=== PATIENT | male | born 1960 | race Caucasian/White ===

== ENCOUNTER 2016-08-20 10:50 | Day surgery (SDC) | payer BC ==
--- NOTE | 2016-08-11 12:07 | HP ---
PREOPERATIVE HISTORY AND PHYSICAL: DATE OF ADMISSION: 08/20/16 This patient is scheduled for Same-Day Surgery admission by Dr. Reynoso on 08/20/16. DATE OF EXAM: 08/08/16 ATTENDING SURGEON: Dr. Terry Reynoso (dictated by Kiara Rdz NP). CHIEF COMPLAINT: Belly button hernia. HISTORY OF PRESENT ILLNESS: The patient is a 55-year-old male referred to Dr. Reynoso from Dr. Abigail Morel for evaluation of umbilical hernia. The patient describes the onset of a belly button bulge in May 2016. It has gotten gradually larger but is not associated with any pain or nausea or vomiting but he has noticed more constipation. He denies any heavy lifting at that time or other trauma to the umbilical region. Dr. Reynoso examined the patient and notes a 1 cm umbilical bulge which is reducible; Dr. Reynoso discussed the nature of umbilical hernias and has recommended open umbilical hernia repair with mesh. Dr. Reynoso discussed the relevant risks and benefits and today I reviewed the typical Same-Day Surgery and postoperative care and recovery. The patient has had a chance to ask questions and stated that he understands the information and is satisfied with the answers given to his questions. He will sign surgical consent on the day of surgery. PAST MEDICAL HISTORY: Gastroesophageal reflux and hiatal hernia; pectus excavatum. PAST SURGICAL HISTORY: Left groin hernia repair with mesh in 2007 and urethral dilatation. MEDICATIONS: 1. Duloxetine 30 mg p.o. daily in the morning. 2. Lansoprazole 30 mg p.o. daily in the morning. 3. Zyrtec 10 mg p.o. daily in the morning. 4. Sudafed 60 mg p.o. t.i.d. 5. Ibuprofen 800 mg p.o. b.i.d. 6. Fluticasone 2 sprays each nostril daily p.r.n. 7. Azelastine 0.05% instill one drop into both eyes daily as needed. ALLERGIES: LEVAQUIN and CIPRO and TRAZODONE all caused rash, AMBIEN caused diaphoresis. FAMILY HISTORY: No known anesthesia complications, bleeding tendencies or clotting disorders. SOCIAL HISTORY: He is a nonsmoker. He drinks one glass of red wine per week. He is self-employed. REVIEW OF SYSTEMS: He denies any recent constitutional symptoms. He denies any cardiac conditions or complaints. He denies any current respiratory conditions or complaints. He has a history of GERD and hiatal hernia, controlled with current lansoprazole; he has occasional constipation but denies any signs or symptoms to suggest incarceration or strangulation of the umbilical hernia. He denies any nausea or vomiting; he denies any previous anesthesia complications. He denies any history of deep vein thrombosis or pulmonary embolism. He denies any bleeding tendencies and has never received a blood transfusion. He has had urethral dilatation on one occasion. He denies any current dysuria. PHYSICAL EXAMINATION GENERAL SURVEY: The patient is a 55-year-old male, well developed, well nourished, in no acute distress. VITAL SIGNS: Height 68.5 inches, weight 184 pounds, body mass index 27.6, blood pressure 126/82, pulse 84 and regular, respiratory rate 18. HEENT: Benign. NECK: Supple. No cervical lymphadenopathy. No carotid bruits. BACK: No CVA tenderness. LUNGS: Breath sounds bilaterally clear and equal. HEART: Regular rate and rhythm. No murmurs or rubs appreciated. ABDOMEN: Active bowel sounds. Soft and nondistended. Mild rectus diastasis extended to pectus excavatum. Umbilicus reveals a 1 cm bulge which is reducible in the supine position. No obvious masses or organomegaly. Inguinal exam is done by Dr. Reynoso. Left inguinal area reveals no hernia; small right inguinal hernia noted with Valsalva maneuver. Testicles descended. No masses. EXTREMITIES: Warm without edema or skin ulceration. RECTAL: Deferred. NEUROLOGIC: Alert and oriented x3. Steady gait. SKIN: Warm, dry, intact. IMPRESSION: Umbilical hernia. PLAN: Same-Day Surgery admission to Dr. Reynoso's service on 08/20/16 for open repair of umbilical hernia with mesh. DANIEL RDZ NP CC: Dr. Reynoso at [facility]; Dr. Abigail Morel* [id number]/[facility] #: [id number] [facility] HOSPITALReynaldo
[~2016-08-20 10:50] MED LIST: Buffered Lidocaine 1% SYR 3ML* 3 ML/SYR SYRINGE INTRADERM ONE; Famotidine IV* 10 MG/ML 2 ML (20 mg) IV ONE; Famotidine IV* 10 MG/ML 2 ML (20 mg) ONE; ceFAZolin 2 GM PREMIX (*) 2 GM/50 ML BAG IVPB ONE
[2016-08-20] MEDS ORDERED: fentaNYL* 50 MCG/ML 2 ML VIAL (100 MCG VIAL) ONE (11:34)
[2016-08-20] MEDS ORDERED: Lidocaine 2% PF * 5 ML VIAL ONE (11:34)
[2016-08-20] MEDS ORDERED: Ketorolac INJ* 30 MG/ML 1 ML VIAL ONE (11:34)
[2016-08-20] MEDS ORDERED: Ondansetron INJ* 2 MG/ML VIAL ONE (11:34)
[2016-08-20] MEDS ORDERED: Midazolam* 1 MG/ML 5 ML VIAL (5 MG) ONE (11:34)
[2016-08-20] MEDS ORDERED: KETAMINE HCL* 50 MG/ML 10 ML VIAL ONE (11:34)
[2016-08-20] MEDS ORDERED: Propofol* 10 MG/ML 20 ML BTL IV PUSH ONE (11:34)
[2016-08-20] MEDS ORDERED: Dexamethasone IV* 4 MG/ML 1 ML (4 MG) ONE (11:34)
[2016-08-20] MEDS ORDERED: Lidocaine 1% INJ* 10 MG/ML 30 ML SDV ONE (11:59)
[2016-08-20] MEDS ORDERED: Bupivacaine 0.5% W/EPI SDV* 30 ML VIAL ONE (11:59)
[2016-08-20] MEDS ORDERED: Acetaminophen TAB* 325 MG PO PRN (12:42)
[2016-08-20] MEDS ORDERED: oxyCODONE/Acetamin 5/325 MG* TAB PO PRN (12:42)
[2016-08-20] MEDS ORDERED: HYDROmorphone INJ* 1 MG/ML CARPUJECT SYRINGE IV PRN (12:42)
[2016-08-20] MEDS ORDERED: DiMENhydriNATE IV* 50 MG/ML VIAL IV PUSH PRN (12:42)
[2016-08-20] MEDS ORDERED: Bacitracin OINTMENT* 0.5% 0.5 oz TUBE ONE (12:56)
--- NOTE | 2016-08-20 13:02 | SURGPN ---
Brief Operative Note - Surgery Procedures: Pre-OP Diagnoses: umbilical hernia Post-op Diagnosis: same Procedure: open umbilical hernia repair with mesh Surgeon: Edgardo Asst: Carmen Anethesia: Local AYANNA Sharpe EBL: minimal IVF: 800cc LR Specimen: none Drains: none
[2016-08-20 13:55] VITALS: BP 133/78
--- NOTE | 2016-08-21 03:52 | OP ---
DATE OF OPERATION: 08/20/16 - [facility] DATE OF : 64 SURGEON: Terry Reynoso MD REGULATION SUPERVISOR: CHAPITO Will ANESTHESIOLOGIST: Dr. Sharpe. ANESTHESIA: Local MAC. PRE-OP DIAGNOSIS: Umbilical hernia. POST-OP DIAGNOSIS: Umbilical hernia. OPERATIVE PROCEDURE: Open umbilical hernia repair with mesh. ESTIMATED BLOOD LOSS: Minimal blood loss. IV FLUIDS: 800 cc of crystalloid fluid given. SPECIMEN: None. COUNT: Lap pad count, instrument count correct at the end of procedure. DESCRIPTION OF PROCEDURE: The patient was identified in the preoperative area. Consent signed. Case discussed with him and his again. They understood the risks, benefits, and alternatives, and wished to proceed. We marked him and he was brought to the operating room, placed in the operating table in supine position, gentle sedation was given. Sequential devices were placed on bilateral lower extremities. Preoperative antibiotics were given. The patient' s abdomen was clipped of hair and then prepped and draped in the standard surgical fashion and a time-out was performed. An infraumbilical incision was made. This was deepened down to the anterior fascia inferiorly. The umbilical stalk was then isolated around a Fowler drain and a sharp dissection was utilized to remove the umbilical skin from the hernia defect. The edges of the hernia defect were cleared off and it was approximately 1.5 cm in size. A 4.3-cm Ventralex mesh Bard was opened up and placed into the defect. The tails of the mesh were brought out through the defect. We sutured the inferior aspect, superior aspect as well as laterally with 0 Polysorb sutures, taking care to pick remover the mesh, it lay open, intact, underneath the anterior fascia in a preperitoneal plane ___ ___ entered the abdomen. The defect was then reapproximated with a figure-of-8 0 Polysorb suture. The wound was then irrigated. Umbilical skin was tacked down with a 2-0 Polysorb suture and the defect was closed with 3-0 Polysorb suture, followed by a 4-0 Monocryl subcuticular suture. Steri-Strips and sterile dressings were applied. The patient tolerated the procedure well, was awoken up in the OR, and transferred to the PACU in stable condition. CC: Dr. Abigail Morel; [facility] * [id number]/[facility] #: [id number] [facility]
== END 2016-08-20 14:25 | disposition home or self-care (01) ==
LOC: OR 10:50
PROVIDERS: ATTEND Surgery
DX: K42.9 Umbilical hernia without obstruction or gangrene (principal)
CPT/HCPCS: A9270-GY; C1781; J0690; J1100; J1885; J2250; J2405; J2704; J3010